=== PATIENT | female | born 1985 | race Caucasian/White ===

== ENCOUNTER 2017-06-15 22:00 | Inpatient (IN) | payer OTHER ==
[~2017-06-15] VITALS: Ht 154.9 cm; Wt 59.9 kg
--- NOTE | ~2017-06-15 | DS ---
Unit #: [id number] #: [id number] Patient: STEPHANIE DAVIS [id number] [place] [address] [id number] MR#: [id number] NAME: STEPHANIE DAVIS ROOM: P176 Age: 32 Sex: F Admission Date: 06/16/2017 : 1985 Discharge Date: 06/18/2017 Attending Physician: Yulia Sharpe M.D. Primary Care Physician: Georgia Chisholm M.D. DISCHARGE SUMMARY REASON FOR ADMISSION Stephanie is a 32-year-old woman who was recently admitted under the care of Dr. Sharpe for reporting increasing heroin use, depression, and suicidal ideation. She was admitted for detox and stabilization. DIAGNOSTIC STUDIES LABORATORY RESULTS: Please see hospital chart. HOSPITAL COURSE The patient was admitted and placed on the opioid detox protocol. No previous psychiatric medications were restarted and the patient declined their initiation during my coverage. On the date of discharge, she had completed detox and had a good mood, bright affect, with no suicidal ideation, intent, or plan. She was able to contract for safety in the outpatient setting. DISCHARGE DIAGNOSES AXIS I: Major depression, recurrent; opioid dependence with withdrawal, uncomplicated. AXIS II: No diagnosis. AXIS III: Opioid withdrawal, resolved. AXIS IV: AXIS V: DISCHARGE INSTRUCTIONS Follow up with community mental health and the adult CD-IOP at this facility. DISCHARGE MEDICATIONS None. CONDITION AT DISCHARGE Improved. PROGNOSIS Fair to good. DIET AND ACTIVITY Per primary care doctor. Dictated by... Unit #: [id number] #: [id number] Patient: STEPHANIE DAVIS Kurt Lopez M.D. [facility]/robbin TD: 06/18/2017 19:34 JOB #: [id number] DISCHARGE SUMMARY Page 1 of 1 X Kurt Lopez MD X DISCHARGE SUMMARY
--- NOTE | ~2017-06-15 | HP ---
Unit #: [id number] #: [id number] Patient: STEPHANIE DAVIS [id number] [place] [address] [id number] MR#: [id number] NAME: STEPHANIE DAVIS ROOM: P176 Age: 32 Sex: F Admission Date: 06/16/2017 : 1985 Attending Physician: Yulia Sharpe M.D. Admitting Physician: Yulia Sharpe M.D. Primary Care Physician: Georgia Chisholm M.D. HISTORY AND PHYSICAL HISTORY OF PRESENT ILLNESS Stephanie is a 32-year-old female admitted to [facility] on 06/16/2017 for suicidal ideation with a plan to intentionally overdose or inhale carbon monoxide. She also is detoxing from heroin. PAST MEDICAL HISTORY 1. COPD. 2. Mitral valve prolapse. 3. Overweight. PAST SURGICAL HISTORY 1. Bilateral tubal ligation. 2. Appendectomy. 3. Hemorrhoidectomy. ALLERGIES None. SOCIAL HISTORY Denies tobacco or alcohol use. Does report daily use of heroin. She is currently single and homeless. FAMILY HISTORY Noncontributory. REVIEW OF SYSTEMS CONSTITUTIONAL: No fever or chills. HEENT: Denies any sore throat, ear pain or runny nose. CARDIOVASCULAR: Denies chest pain, irregular heart rhythm or palpitations. CHEST: Denies shortness of breath or cough. No hemoptysis. GASTROINTESTINAL: Denies nausea, vomiting, diarrhea or chronic constipation. ENDOCRINE: Denies history of increased thirst or urination. No recent significant weight loss or gain. GENITOURINARY: Denies dysuria, frequency, or hematuria. SKIN: Denies any rashes. HEMATOLOGIC: Denies history of increased bleeding or bruising. MUSCULOSKELETAL: Denies any hot, swollen joints. No generalized muscle pain. NEUROLOGIC: Denies problems with vision or speech. No frequent, severe headaches. No numbness, tingling or weakness in any extremities. Denies loss of bladder or bowel control. Unit #: [id number] #: [id number] Patient: STEPHANIE DAVIS CURRENT MEDICATIONS None. PHYSICAL EXAMINATION GENERAL: Alert, oriented, in no acute distress. VITAL SIGNS: Blood pressure 133/70, heart rate 78, temperature 97.9. HEIGHT: 5 feet 1. WEIGHT: 132 pounds. SKIN: Warm and dry without rash or lesion. HEENT: Normocephalic. TMs not viewed. Oral and nasal passages clear. Conjunctivae clear. PERRLA. EOMs intact. NECK: Supple without lymphadenopathy or thyromegaly. HEART: Regular rate and rhythm without murmur. LUNGS: Clear. ABDOMEN: Soft, nontender, without masses or hepatosplenomegaly. : Not done. EXTREMITIES: No evidence of cyanosis, clubbing or edema. Moves all without focal deficit. NEUROLOGICAL: Grossly within normal limits. Cranial Nerves: II: Visual evangelista are intact. III, IV AND : Extraocular movements are intact. Pupils are equal, round and reactive to light. V: Facial sensation is grossly normal. VII: Facial movements and expression are normal. VIII: Auditory acuity grossly intact. IX, X: Uvula is midline. Phonation is normal. XI: Patient shrugs shoulders and turns head normally. XII: Tongue protrudes in the midline. Sensory and Motor Function: Sensory and motor sensation is grossly normal. Motor: moves all extremities well. Coordination: Gait is normal. Deep Tendon Reflexes: Intact. IMPRESSION 1. Psychiatric admission. 2. Overweight. 3. Chronic obstructive pulmonary disease. 4. Mitral valve prolapse. RECOMMENDATIONS PSYCHIATRIC: Per psychiatrist. MEDICAL: No contraindication to participate in facility's activities. MEDICAL PROGNOSIS Good. MEDICAL CONDITION Stable. Dictated by..Gwyn So/aileen TD: 06/18/2017 16:48 JOB #: [id number] Unit #: [id number] #: [id number] Patient: STEPHANIE DAVIS HISTORY AND PHYSICAL Page 1 of 1 X XENA RIVERA APRN X HISTORY AND PHYSICAL
--- NOTE | ~2017-06-15 | PN ---
Unit #: [id number] #: [id number] Patient: STEPHANIE DAVIS [id number] [facility] [address] [place] [address] [id number] I MR#: [id number] NAME: STEPHANIE DAVIS ROOM: P176 Age: 32 Sex: F Admission Date: 06/16/2017 : 1985 Attending Physician: Yulia Sharpe M.D. Admitting Physician: Yulia Sharpe M.D. Primary Care Physician: Uriel Hu PROGRESS NOTES DATE OF SERVICE 06/17/2017 DISCUSSION Stephanie was seen today for Dr. Sharpe who was on vacation. She reports active detox symptomatology. Her mood is moderately depressed with a congruent affect. She is alert and fully oriented with no psychosis. She denies suicidal ideation today. ASSESSMENT 1. Major depression. 2. Opiate dependence. PLAN We will continue current medications and precautions. Dictated by... Kurt Lopez M.D. H/bzbryn TD: 06/19/2017 10:42 JOB #: [id number] [facility] PROGRESS NOTES Page 1 of 1 X Kurt Lopze MD X PROGRESS NOTE
--- NOTE | ~2017-06-15 | PA ---
Unit #: [id number] #: [id number] Patient: STEPHANIE DAVIS [id number] [facility] [address] [place] [address] [id number] I MR#: [id number] NAME: STEPHANIE DAVIS ROOM: P176 Age: 32 Sex: F Admission Date: 06/16/2017 : 1985 Date of Assessment: 06/16/2017 Attending Physician: Yulia Sharpe M.D. Admitting Physician: Yulia Sharpe M.D. Primary Care Physician: Georgia Chisholm M.D. PSYCHIATRIC ASSESSMENT DATE OF SERVICE 06/16/2017. IDENTIFYING DATA Ms. Davis is a 32-year-old single white female, who is a resident of [place], [place], and was self-referred to the hospital on a voluntary basis. CHIEF COMPLAINT "I am injecting half a gram a day." HISTORY OF PRESENT ILLNESS Ms. Davis is a 32-year-old white female with history of substance abuse and mood disorder, who was self-referred to the hospital. She reports that she has been using heroin and has been injecting half a gram a day and has been using methamphetamine few times a month and her last use of heroin was one and a half hours ago, and then reports that she feels miserable and does not want to be here anymore and has a plan to overdose intentionally and states that she hates herself and she is miserable endorse significant depression, anxiety, irritability, feelings of hopelessness and helplessness, suicidal ideations with an intent or plan and as such, recommendation for inpatient level of care for safety and stabilization was made and the patient was transferred to us. SUBSTANCE ABUSE HISTORY The patient reports extensive history of substance abuse and dependence including alcohol, opioid, amphetamines, and benzodiazepines. Currently, opioid has been her drug of choice as she reports that she has been using IV heroin on a daily basis and has been using methamphetamine occasionally as well. PAST PSYCHIATRIC HISTORY The patient has had history of multiple inpatient psychiatric hospitalizations including being at [facility] and [facility], and has been diagnosed and treated for mood disorder, but has been noncompliant with medication as such, has been decompensating. PAST MEDICAL HISTORY Mitral valve prolapse. ALLERGIES No known medication allergies. Unit #: [id number] #: [id number] Patient: STEPHANIE DAVIS PERSONAL AND SOCIAL HISTORY A 32-year-old white female, who reports that she is single, unemployed, and lives alone and has poor social support system. MENTAL STATUS EXAMINATION Young white female, who was casually dressed with fair personal hygiene, appears to be in no acute distress or discomfort. She was awake and alert on interaction with intact orientation. Her mood was anxious with a congruent affect. Her speech was slow and goal directed. She reports having suicidal ideations, but denies any homicidal ideations, and also denies any auditory or visual hallucinations. Her insight and judgment remain significantly impaired. DIAGNOSTIC IMPRESSION PSYCHIATRIC: Major depressive disorder, recurrent, moderate, without psychotic features; opioid dependence, moderate; methamphetamine abuse, moderate; benzodiazepine abuse, moderate. Medical: None. Stressors: Moderate psychosocial stressors. TREATMENT PLAN 1. The patient has presented with a history of mood disorder and substance abuse and has been decompensating and will need inpatient hospitalization for detoxification, safety, and stabilization. We will start her back on her home medications. We will adjust the medications and monitor response. 2. Supportive therapy was provided to the patient. 3. Safe, structured, and nourishing environment will be provided. ESTIMATED LENGTH OF STAY 5 to 7 days. ABILITY TO HELP SELF Limited. WILLINGNESS TO HELP SELF The patient appears to be willing to help self. STRENGTHS 1. Communicative. 2. Cooperative. PROBLEMS 1. Chronic dysphoric symptoms. 2. Chronic chemical dependency. 3. Poor social support system. DISCHARGE CRITERIA This will be contingent upon the patient's ability to go through detox without having any significant withdrawal symptoms and her ability to stay safe to herself, particularly after discharge from the hospital. Dictated by... Yulia Sharpe M.D. IAA/modl Unit #: [id number] #: [id number] Patient: STEPHANIE DAVIS TD: 06/16/2017 11:09 JOB #: [id number] PSYCHIATRIC ASSESSMENT Page 1 of 1 X Yulia Sharpe MD X PSYCHIATRIC ASSESSMENT
[~2017-06-15 22:00] MED LIST: ALBUTEROL17 GM INH; AMOXICILLIN500 M1; AMOXIL500 M1 PO; ANTIVERT12.5 MG PO; ATARAX PO; BACTRIM DS TABL1 TA1 PO; BACTRIM DS TABL1 TAB PO; CIPRO PO; CLEOCIN PO; COLACE PO; DEPAKOTE PO; DIFLUCAN PO; DOXYCYCLINE HY100 M1 PO; DOXYCYCLINE PO; EX-LAX; FAMOTIDINE PO; FLAGYL PO; FLEXERIL10 MG; FLUCONAZOLE100 M1 PO; GABAPENTIN600 MG PO; IBUPROFEN PO; KEFLEX PO; KLONOPIN PO; KLONOPIN0.5 M1 DOB; LORTAB 10-5001 EACH PO; LORTAB 7.51 TAB; LORTAB 7.51 TAB 7.5/ PO; MACROBID100 MG PO; NEURONTIN PO; NEURONTIN600 MG PO; PEN-VEE K PO; PHENERGAN DM1 ML PO; PHENERGAN25 MG PO; PREDNISONE PO; PROZAC PO; PROZAC40 M1 PO; PYRIDIUM PO; PYRIDIUM100 MG PO; ROBITUSSIN-DM120 ML PO; SEPTRA DS PO; TYLENOL #3 PO; VICODIN 5/1 TAB 5/50 PO; VICODIN 5/500 T1 TAB PO; VICODIN PO; VOLTAREN75 MG PO; XANAX0.5 MG PO; XANAX1 MG PO; ZITHROMAX PO; ZOFRAN ODT4 MG PO; ZYRTEC PO
[2017-06-17 10:49] LABS: BASOPHIL% 0.4 % (0-2.5); EOSINOPHIL# 0.1 X10e3 (0-0.7); EOSINOPHIL% 2.7 % (0.0-7.0); HEMATOCRIT 32.8 % (35.0-45.0); HEMOGLOBIN 11.3 gm/dL (12.0-16.0); LYMPHOCYTE# 2.2 X10e3 (1.0-3.5); LYMPHOCYTE% 40.1 % (17.0-45.0); MEAN CELL VOLUME 81.2 FL (83-96); MEAN CORPUSCULAR HEMOGLOBIN 27.9 PG (28-34); MEAN CORPUSCULAR HGB CONC 34.3 g/dL (30-36); MEAN PLATELET VOLUME 8.1 FL (6.5-11.5); MONOCYTE# 0.4 X10e3 (0-1.0); MONOCYTE% 7.6 % (3.0-12.0); NEUTROPHIL# 2.7 X10e3 (1.5-7.1); NEUTROPHIL% 49.2 % (40-75); PLATELET COUNT 274 X10e3 (140-420); RED BLOOD COUNT 4.04 X10e (3.90-5.30); RED CELL DISTRIBUTION WIDTH 13.3 % (11.0-15.5); WHITE BLOOD COUNT 5.5 X10e3 (4.0-10.5)
[2017-06-17 11:05] LABS: DIFF IND NO
[2017-06-17 11:13] LABS: ALBUMIN SERUM 3.8 g/dL (3.5-5.0); BILIRUBIN,TOTAL 0.6 mg/dL (0.2-2.0); BUN/CREATININE RATIO 15.71; CALCIUM SERUM 9.4 mg/dL (8.4-10.2); CREATININE SERUM 0.7 mg/dL (0.6-1.4); GLOM FILT RATE Estimated 115.5 mL/min (>60); POTASSIUM 3.8 mmol/L (3.5-5.1); PROTEIN TOTAL SERUM 6.6 g/dL (6.0-8.3)
== END 2017-06-18 11:02 | DRG 885 ==
LOC: P1E 06-16 01:26
PROVIDERS: Psychiatry & Neurology Psychiatry
PROC: HZ2ZZZZ Detoxification Services for Substance Abuse Treatment (ICD-10-PCS; principal; 2017-06-16)
DX: F33.1 Major depressive disorder, recurrent, moderate (principal); R45.851 Suicidal ideations; F11.23 Opioid dependence with withdrawal; J44.9 Chronic obstructive pulmonary disease, unspecified; I34.1 Nonrheumatic mitral (valve) prolapse; Z98.51 Tubal ligation status; Z59.0 Homelessness
CPT/HCPCS: 80053; 85025; 86592